=== PATIENT | male | born 1995 | race Caucasian/White ===

== ENCOUNTER 2020-06-23 06:44 | Emergency (ER) | payer OTHER ==
[2020-06-23] MEDS ORDERED: Sodium Chloride 0.9% 1000 ML 1,000 ML IV STA (07:06)
[2020-06-23] MEDS ORDERED: Sodium Chloride 0.9% 1000 ML 1,000 ML ONE (07:08)
[2020-06-23 07:14] LABS: Absolute Neutrophil Ct (ANC) 10.76 (1.4-6.9); BASOPHIL % 0.3 % (0.0-0.4); Basophil (Absolute #) 0.04 (0-0.4); Eosinophil % 0.1 % (0.00-5.0); Eosinophil (Absolute #) 0.01 (0-0.5); Hematocrit 47.9 % (42-50); Hemoglobin 15.7 gm/dl (12.5-18.0); Lymphocyte (Absolute #) 1.07 (1.0-4.6); Lymphocytes % 8.4 % (24.0-44.0); Mean Cell Volume 88.4 fl (78-100); Mean Corpuscular Hgb Concent. 32.8 g/dl (32-36); Mean Platelet Volume 11.4 fl (7.5-11.0); Monocyte (Absolute #) 0.83 (0.0-1.3); Monocytes % 6.5 % (0.0-12.0); Neutrophil % 84.7 % (36.0-66.0); Platelet Count 217 K/mm3 (150-450); Red Blood Count 5.42 M/mm3 (4.1-5.6); Red Cell Distribution Width 12.2 % (11.5-14.0); White Blood Count 12.7 K/mm3 (4.0-10.5)
[2020-06-23 07:23] LABS: VBG BASE EXCESS 1.7 (-2.0-2.0); VBG CARBOXYHEMOGLOBIN 1.9 % T HGB (0.0-6.9); VBG HCO3- 28.2 meq/L (22-28); VBG HEMOGLOBIN 16.1; VBG O2 SATURATION 47.8 (95-100); VBG POTASSIUM 4.5 (3.5-5.1); VBG pH 7.35 (7.32-7.42)
[2020-06-23 07:29] LABS: Appearance SLIGHTLY CLOUDY (CLEAR); Bilirubin NEGATIVE (NEGATIVE); Blood NEGATIVE Ery/ul (0-5); Epithelial Cells RARE /HPF (FEW); Glucose >=500 mg/dL (NEGATIVE); Ketones NEGATIVE (NEGATIVE); Leukocyte Esterase NEGATIVE (NEGATIVE); Mucus MANY /HPF (NEGATIVE); Nitrite NEGATIVE (NEGATIVE); Protein,Urine Dip 30 (Negative); Specific Gravity 1.036 (1.005-1.025); Urobilinogen NEGATIVE mg/dL (0-1)
[2020-06-23 07:31] LABS: ALBUMIN 4.5 g/dL (3.5-5.0); ALKALINE PHOSPHATASE 100 U/L (38-126); BLOOD UREA NITROGEN 21 mg/dL (9-20); CHLORIDE 103 mmol/L (98-107); Calcium 9.4 mg/dL (8.4-10.2); Carbon Dioxide 26 mmol/L (22-30); Creatinine 1 0.71 mg/dL (0.66-1.25); EST GLOMERULAR FILTRATION RATE > 60.0 ML/MIN; Glucose 158 mg/dL (74-106); Potassium 4.5 mmol/L (3.5-5.1); SGOT/AST 39 U/L (17-59); SGPT/ALT 36 U/L (0-50); SODIUM 137 mmol/L (137-145); Total Protein 7.6 g/dL (6.3-8.2)
--- NOTE | 2020-06-23 07:41 | ERPHSYRPT ---
- History of Present Illness Time Seen by Provider: 06/23/20 07:32 Source: patient Exam Limitations: no limitations Patient Subjective Stated Complaint: Hypoglycemia Triage Nursing Assessment: Patient brought back to ED via EMS and transferred self to bed. Patient A+O x3. Patient's skin pink, warm and dry. EMS reports patient's cousin calling 911 due to patient being incoherent. Patient is Type 1 DM. Upon arrival of EMS bs noted to be 80, but patient was still incoherent and unable to talk correctly. Patient was recently started on Farxiga 5mg and took one and only dose on Monday morning and has had two episodes of being incoherent. BS 156. Patient denies pain or discomfort. Physician History: 25 years old type I diabetic on insulin pump who was started on Farxiga 5 mg few days ago and has taken 2 doses so far which seems to be bottoming out his blood sugar. Patient reports in the last 3 days he has 2 episodes where he was found to be really weak and tired and prior to arrival he was screaming while s leeping, incoherent and found out to have a blood sugar of 40 at home. It improved to 80 on presentation in the ER. Patient denies any focal numbness tingling or weakness. No chest pain palpitations or shortness of breath. No abdominal pain nausea or vomiting. Timing/Duration: day(s) (3), intermittent, sudden, improved Severity: moderate Modifying Factors: Worsens With: nothing Associated Symptoms: denies symptoms Allergies/Adverse Reactions: No Known Drug Allergies Allergy (Verified 06/23/20 06:47) Home Medications: Dapagliflozin Propanediol [Farxiga] 1 tab PO DAILY 06/23/20 [History] Ergocalciferol (Vitamin D2) [Vitamin D] 25,000 unit PO WEEKLY 06/23/20 [History] Insulin Lispro [Humalog] 1 unit SQ DAILY 06/23/20 [History] Hx Tetanus, Diphtheria Vaccination/Date Given: Yes Hx Influenza Vaccination/Date Given: Yes Hx Pneumococcal Vaccination/Date Given: No Immunizations Up to Date: Yes Travel Risk - International Travel Have you traveled outside of the country in past 3 weeks: No - Coronavirus Screening Are you exhibiting any of the following symptoms?: No Close contact with a COVID-19 positive Pt in past 14-21 Days: No - Vaccine Status Have you recieved a Covid-19 vaccination: Yes 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 - Vaccination Dates Date of 2cond Vaccination (if applicable): N/A - Review of Systems Constitutional: Fatigue, Weakness Eyes: No Symptoms Ears, Nose, & Throat: No Symptoms Respiratory: No Symptoms Cardiac: No Symptoms Abdominal/Gastrointestinal: No Symptoms Genitourinary Symptoms: No Symptoms Musculoskeletal: No Symptoms Skin: No Symptoms Neurological: No Symptoms Psychological: No Symptoms Endocrine: No Symptoms Hematologic/Lymphatic: No Symptoms Immunological/Allergic: No Symptoms - Past Medical History Pertinent Past Medical History: Yes Endocrine Medical History: Diabetes Type I Other Medical History: INSULIN PUMP - Past Surgical History Past Surgical History: Yes Other Surgical History: TONSILS AND ADDENOIDS - Social History Smoking Status: Never smoker Exposure to second hand smoke: Yes Drug Use: none Patient Lives Alone: No - Nursing Vital Signs Nursing Vital Signs: Initial Vital Signs Temperature 97.0 F 06/23/20 06:52 Pulse Rate 106 H 06/23/20 06:52 Respiratory Rate 18 06/23/20 06:52 Blood Pressure 167/90 06/23/20 06:52 O2 Sat by Pulse Oximetry 99 06/23/20 06:52 Pain Scale Pain Intensity 0 - Physical Exam General Appearance: no apparent distress, alert Eye Exam: PERRL/EOMI, eyes nml inspection Ears, Nose, Throat Exam: normal ENT inspection, pharynx normal Neck Exam: normal inspection, supple, full range of motion Respiratory Exam: normal breath sounds, lungs clear Cardiovascular Exam: regular rate/rhythm, normal heart sounds Gastrointestinal/Abdomen Exam: soft, normal bowel sounds, tenderness Back Exam: normal inspection, normal range of motion Extremity Exam: normal inspection, normal range of motion, pelvis stable Neurologic Exam: alert, oriented x 3, cooperative, 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 as tested, normal mood/affect, nml cerebellar function Skin Exam: normal color SpO2 Interpretation: normal SpO2: 99 O2 Delivery: Room Air Ordered Tests: Active Orders 24 hr Category Date Time Status CBC W DIFF Stat Lab 06/23/20 06:59 Completed CMP Stat Lab 06/23/20 06:59 Completed Lactic Acid Stat Lab 06/23/20 07:05 Completed UA W/RFX UR CULTURE Stat Lab 06/23/20 07:00 Ordered VENOUS BLOOD GAS Stat Lab 06/23/20 07:05 Completed Medication Summary Generic Name Dose Route Start Last Admin Trade Name Hussein PRN Reason Stop Dose Admin Sodium Chloride 1,000 mls @ 999 mls/hr 06/23/20 07:06 06/23/20 07:09 Sodium Chloride 0.9% 1000 Ml IV 06/23/20 08:06 999 mls/hr .Q1H1M STA Administration Discontinued Medications Generic Name Dose Route Start Last Admin Trade Name Hussein PRN Reason Stop Dose Admin Sodium Chloride Confirm 06/23/20 07:08 Sodium Chloride 0.9% 1000 Ml Administered 06/23/20 07:09 Dose 1,000 mls @ ud .ROUTE .STK-MED ONE Lab/Rad Data: Laboratory Result Diagrams 06/23/20 06:59 06/23/20 06:59 Laboratory Results 06/23/20 06/23/20 06/23/20 Range/Units 07:05 06:59 06:59 WBC 12.7 H (4.0-10.5) K/mm3 RBC 5.42 (4.1-5.6) M/mm3 Hgb 15.7 (12.5-18.0) gm/dl Hct 47.9 (42-50) % MCV 88.4 (78-100) fl MCH 29.0 (26-32) pg MCHC 32.8 (32-36) g/dl RDW 12.2 (11.5-14.0) % Plt Count 217 (150-450) K/mm3 MPV 11.4 H (7.5-11.0) fl Gran % 84.7 H (36.0-66.0) % Eos # (Auto) 0.01 (0-0.5) Absolute Lymphs (auto) 1.07 (1.0-4.6) Absolute Monos (auto) 0.83 (0.0-1.3) Lymphocytes % 8.4 L (24.0-44.0) % Monocytes % 6.5 (0.0-12.0) % Eosinophils % 0.1 (0.00-5.0) % Basophils % 0.3 (0.0-0.4) % Absolute Granulocytes 10.76 H (1.4-6.9) Basophils # 0.04 (0-0.4) pO2/FiO2 Ratio 21.0 % VBG pH 7.35 (7.32-7.42) VBG pCO2 at Pat Temp 51 (42-55) mm/Hg VBG pO2 at Pat Temp 30 (25-40) mm/Hg VBG HCO3 28.2 H (22-28) meq/L VBG O2 Sat (Gilberto) 47.8 L (95-100) VBG Base Excess 1.7 (-2.0-2.0) VBG Hemoglobin 16.1 VBG Carboxyhemoglobin 1.9 (0.0-6.9) % T HGB POC Potassium 4.5 (3.5-5.1) Sodium 137 (137-145) mmol/L Potassium 4.5 (3.5-5.1) mmol/L Chloride 103 (98-107) mmol/L Carbon Dioxide 26 (22-30) mmol/L Anion Gap 13.0 (5-15) MEQ/L BUN 21 H (9-20) mg/dL Creatinine 0.71 (0.66-1.25) mg/dL Estimated GFR > 60.0 ML/MIN Glucose 158 H (74-106) mg/dL Lactic Acid 1.0 (0.4-2.0) Calcium 9.4 (8.4-10.2) mg/dL Total Bilirubin 0.30 (0.2-1.3) mg/dL AST 39 (17-59) U/L ALT 36 (0-50) U/L Alkaline Phosphatase 100 (38-126) U/L Serum Total Protein 7.6 (6.3-8.2) g/dL Albumin 4.5 (3.5-5.0) g/dL - Progress Progress: improved, re-examined Progress Note: 06/23/20 07:42 His blood sugar is improved to 158 on lab check. He is given fluid bolus. Nonfocal neuro exam throughout stay in the ER. Has white count of 12, not in DKA. Blood sugar drop could be secondary to Farxiga. I have advised him to stop it and discuss with his photographer helper and go per his recommendations. Discussed signs symptoms of worsening and how to manage hypoglycemic episode and also need to return to ER which he seems understanding. Counseled pt/family regarding: lab results, diagnosis, need for follow-up - Departure Departure Disposition: Home Clinical Impression: Hypoglycemic episode in patient with diabetes mellitus, Generalized weakness Condition: Stable Critical Care Time: No Referrals: JACOB BROWN [NON-STAFF PHY W/O PRIVILEGES] - (Call today) Instructions: Low Blood Sugar, Adult (DC) Additional Instructions: Monitor your blood sugar regularly, stop taking Farxiga and discussed with your primary photographer helper and go per his recommendations. Follow instructions for low blood sugar management. Keep yourself well-hydrated. Return to ER for any worsening.
[2020-06-23 08:01] LABS: Bacteria FEW /HPF (NEGATIVE)
[2020-06-23 09:06] VITALS: BP 154/94; PULSE 101; O2SAT 98
== END 2020-06-23 09:07 | disposition home or self-care (01) ==
LOC: ED 06:44
DX: E10.649 Type 1 diabetes mellitus with hypoglycemia without coma (principal); Z79.4 Long term (current) use of insulin; R53.1 Weakness
CPT/HCPCS: 36415; 80053; 81001; 82805; 83605; 85025; 96360; 99284

== ENCOUNTER 2022-04-11 08:26 | Emergency (ER) | payer OTHER ==
[2022-04-11] MEDS ORDERED: ZOFRAN ODT 4 MG PO ONE (09:14)
[2022-04-11] MEDS ORDERED: ZOFRAN ODT 4 MG ONE (09:15)
[2022-04-11] MEDS ORDERED: Sodium Chloride 0.9% 1000 ML 1,000 ML IV STA (09:43)
[2022-04-11] MEDS ORDERED: TORAdol 30 mg Injection IV ONE (09:44)
[2022-04-11] MEDS ORDERED: Cleocin Phosphate IV 600 MG/4 ML IV ONE (09:44)
[2022-04-11] MEDS ORDERED: Sodium Chloride 0.9% 1000 ML 1,000 ML ONE (10:06)
[2022-04-11] MEDS ORDERED: TORAdol 30 mg Injection ONE (10:06)
[2022-04-11] MEDS ORDERED: CLINDAMYCIN-D5W 600 MG/50 ML*** 600 MG/50 ML BAG IV ONE (10:06)
[2022-04-11 10:19] LABS: Absolute Neutrophil Ct (ANC) 12.79 x10^3/uL (1.4-6.9); BASOPHIL % 0.3 % (0.0-0.4); Basophil (Absolute #) 0.04 x10^3/uL (0-0.4); Eosinophil % 0.1 % (0.00-5.0); Eosinophil (Absolute #) 0.01 x10^3/uL (0-0.5); Hematocrit 43.8 % (42-50); Hemoglobin 14.4 g/dL (12.5-18.0); IMMATURE GRAN # 0.07 x10^3u/L (0.00-0.03); IMMATURE GRAN % 0.5 % (0.00-0.4); Lymphocyte (Absolute #) 1.29 x10^3/uL (1.0-4.6); Lymphocytes % 8.5 % (24.0-44.0); Mean Cell Volume 88.7 fL (78-100); Mean Corpuscular Hemoglobin 29.1 pg (26-32); Mean Corpuscular Hgb Concent. 32.9 g/dL (32-36); Monocyte (Absolute #) 1.04 x10^3/uL (0.0-1.3); Monocytes % 6.8 % (0.0-12.0); Neutrophil % 83.8 % (36.0-66.0); Platelet Count 169 x10^3/uL (150-450); Red Blood Count 4.94 x10^6/uL (4.1-5.6); White Blood Count 15.2 x10^3/uL (4.0-10.5)
[2022-04-11 10:20] LABS: ALBUMIN 3.9 g/dL (3.5-5.0); ALKALINE PHOSPHATASE 111 U/L (38-126); ANION GAP 13.1 MEQ/L (5-15); BLOOD UREA NITROGEN 12 mg/dL (9-20); CHLORIDE 105 mmol/L (98-107); Calcium 8.5 mg/dL (8.4-10.2); Carbon Dioxide 23 mmol/L (22-30); EST GLOMERULAR FILTRATION RATE > 60.0 ML/MIN; Glucose 160 mg/dL (74-106); SGOT/AST 25 U/L (17-59); SGPT/ALT 24 U/L (0-50); SODIUM 137 mmol/L (137-145); Total Protein 7.2 g/dL (6.3-8.2)
--- NOTE | 2022-04-11 10:28 | XRAY ---
Indication: Right jaw pain/swelling. No known injury. Multiple contiguous axial images obtained through the facial bones. Sagittal and coronal reformatted images obtained. Comparison: None No acute fracture, suspicious bony lesions, or radiopaque foreign body. Orbits including roof, bravo, and floors intact. Paranasal sinuses and nasal passages are clear. Mild nasal septal deviation to the right. Incidental bilateral middle turbinate bria bullosa. Right jaw demonstrate mild incompletely visualized cutaneous/subcutaneous soft tissue induration presumed inflammatory/infectious. Visualized right parotid gland is asymmetrically prominent with small intraparotid lymph nodes favoring parotiditis in the right clinical setting. Lack of IV contrast precludes further characterization. Small centimeter/subcentimeter right cervical lymph nodes presumed reactive. No pathologic lymphadenopathy. Visualized base of brain unremarkable. Impression: 1. Incompletely visualized prominent right parotid gland. Rule out parotiditis. Adjacent right cutaneous/subcutaneous soft tissue induration with prominent right cervical lymph nodes presumed reactive. 2. Remaining CT facial bones without contrast exam is negative.
[2022-04-11] MEDS ORDERED: CLINDAMYCIN-D5W 600 MG/50 ML*** 600 MG/50 ML BAG IV STA (10:38)
--- NOTE | 2022-04-11 11:24 | ERPHSYRPT ---
- History of Present Illness Source: patient Exam Limitations: no limitations Patient Subjective Stated Complaint: Pt states "My right jaw has been swollen for three days. I cannot eat, I can barely open my mouth." Triage Nursing Assessment: Pt presented alert and oriented X 3, skin pwd. Pt ambulates with an upright steady gait, able to speak in clear full sentences. Pt right jaw swollen and tender. Physician History: 27 yo wm w R mandibular edema x 2 days. Pain is 8/10. He denies fever and dental pain. Pt has been nauseated wo vomiting. Trauma is denied. Pt states that this is a recurrent problem. Timing/Duration: gradual onset Severity: moderate ENT Location: facial (R mandibular edema) Prearrival Treatment: no prearrival treatment Associated Symptoms: denies symptoms Allergies/Adverse Reactions: No Known Drug Allergies Allergy (Verified 06/23/20 06:47) Home Medications: Dapagliflozin Propanediol [Farxiga] 1 tab PO DAILY 06/23/20 [History] Ergocalciferol (Vitamin D2) [Vitamin D] 25,000 unit PO WEEKLY 06/23/20 [History] Insulin Lispro [Humalog] 1 unit SQ DAILY 06/23/20 [History] Hx Tetanus, Diphtheria Vaccination/Date Given: Yes Hx Influenza Vaccination/Date Given: Yes Hx Pneumococcal Vaccination/Date Given: No Immunizations Up to Date: Yes Travel Risk - International Travel Have you traveled outside of the country in past 3 weeks: No - Coronavirus Screening Are you exhibiting any of the following symptoms?: No Close contact with a COVID-19 positive Pt in past 14-21 Days: No - Vaccine Status Have you recieved a Covid-19 vaccination: Yes 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 - Vaccination Dates Date of 2cond Vaccination (if applicable): N/A - Review of Systems Constitutional: No Symptoms Eyes: No Symptoms Ears, Nose, & Throat: No Symptoms Respiratory: No Symptoms Cardiac: No Symptoms Abdominal/Gastrointestinal: No Symptoms Genitourinary Symptoms: No Symptoms Musculoskeletal: No Symptoms Skin: No Symptoms Neurological: No Symptoms Psychological: No Symptoms Endocrine: No Symptoms Hematologic/Lymphatic: No Symptoms Immunological/Allergic: No Symptoms - Past Medical History Pertinent Past Medical History: Yes Neurological History: Peripheral Neuropathy Cardiac History: Other Respiratory History: No Pertinent History Endocrine Medical History: Diabetes Type II Musculoskeletal History: Fractures Other Medical History: NOTES NUMBESS UNDER THE TOES ON THE R SIDE. PT HAS AN INSULINE PUMP. TACHYCARDIA. - Past Surgical History Past Surgical History: Yes Other Surgical History: TONSILS AND ADDENOIDS - Social History Smoking Status: Never smoker Exposure to second hand smoke: Yes Drug Use: none Patient Lives Alone: No - Nursing Vital Signs Nursing Vital Signs: Initial Vital Signs Temperature 98.3 F 04/11/22 08:50 Pulse Rate 105 H 04/11/22 08:50 Respiratory Rate 20 04/11/22 08:50 Blood Pressure 188/102 04/11/22 08:50 O2 Sat by Pulse Oximetry 96 04/11/22 08:50 Pain Scale Pain Intensity 5 Tachy/Hypertensive - Physical Exam General Appearance: no apparent distress Eye Exam: bilateral eye: normal inspection, PERRL, EOMI Ear Exam: bilateral ear: auricle normal, canal normal, TM normal Nasal Exam: normal inspection Throat Exam: pharynx normal, mandibular swelling (Marked R mandibular edema w TTP/Good airway), No dental tenderness, No excessive drooling, No foreign body Neck Exam: normal inspection, non-tender, supple, full range of motion, trachea midline Cardiovascular/Respiratory Exam: normal breath sounds, heart sounds normal, tachycardia Abdominal Exam: non-tender, soft Neurologic Exam: alert, oriented x 3, cooperative, 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 as tested, normal mood/affect, nml cerebellar function, nml station & gait, sensation nml Skin Exam: normal color, warm, dry SpO2 Interpretation: normal SpO2: 94 O2 Delivery: Room Air - Course Nursing assessment & vital signs reviewed: Yes - CT Exams Maxillofacial Bones CT Interpretation: Discussed w/radiologist (Parotid edema w reactive nodes) Ordered Tests: Active Orders 24 hr Category Date Time Status IV Insertion STAT Care 04/11/22 09:43 Completed FACIAL BONES WO CONTRAST [CT] Stat Exams 04/11/22 10:12 Completed CBC W DIFF Stat Lab 04/11/22 10:12 Completed CMP Stat Lab 04/11/22 10:12 Completed Lactic Acid Stat Lab 04/11/22 09:27 Completed UA W/RFX UR CULTURE Stat Lab 04/11/22 09:42 Ordered Medication Summary Discontinued Medications Generic Name Dose Route Start Last Admin Trade Name Freq PRN Reason Stop Dose Admin Clindamycin Phosphate 600 mg 04/11/22 09:44 04/11/22 10:43 Clindamycin Phosphate 600 Mg/4 Ml Vial IV 04/11/22 09:45 Not Given ONCE ONE Dexamethasone Sodium Phosphate 10 mg 04/11/22 11:29 04/11/22 11:32 Dexamethasone Sod Phosphate 10 Mg/Ml IV 04/11/22 11:30 10 mg STAT ONE Administration Dexamethasone Sodium Phosphate Confirm 04/11/22 11:31 Dexamethasone Sod Phosphate 10 Mg/Ml Administered 04/11/22 11:32 Dose 10 mg .ROUTE .STK-MED ONE Sodium Chloride 1,000 mls @ 999 mls/hr 04/11/22 09:43 04/11/22 11:30 Sodium Chloride 0.9% 1000 Ml IV 04/11/22 10:43 Infused .Q1H1M STA Infusion Sodium Chloride Confirm 04/11/22 10:06 Sodium Chloride 0.9% 1000 Ml Administered 04/11/22 10:07 Dose 1,000 mls @ ud .ROUTE .STK-MED ONE Clindamycin HCl/Dextrose Confirm 04/11/22 10:06 Clindamycin-D5w 600 Mg/50 Ml Administered 04/11/22 10:07 Dose 600 mg in 50 mls @ ud IV .STK-MED ONE Clindamycin HCl/Dextrose 600 mg in 50 mls @ 100 mls/hr 04/11/22 10:38 04/11/22 11:21 Clindamycin-D5w 600 Mg/50 Ml IV 04/11/22 11:07 Infused STAT STA Infusion Ketorolac Tromethamine 30 mg 04/11/22 09:44 04/11/22 10:27 Ketorolac Tromethamine 30 Mg/Ml Inj IV 04/11/22 09:45 30 mg STAT ONE Administration Ketorolac Tromethamine Confirm 04/11/22 10:06 Ketorolac Tromethamine 30 Mg/Ml Inj Administered 04/11/22 10:07 Dose 30 mg .ROUTE .STK-MED ONE Ondansetron HCl 4 mg 04/11/22 09:14 04/11/22 09:16 Zofran 4 Mg/Udtablet Orally Disintegrating PO 04/11/22 09:15 4 mg STAT ONE Administration Ondansetron HCl Confirm 04/11/22 09:15 Zofran 4 Mg/Udtablet Orally Disintegrating Administered 04/11/22 09:16 Dose 4 mg .ROUTE .STK-MED ONE Lab/Rad Data: Laboratory Result Diagrams 04/11/22 10:12 04/11/22 10:12 Laboratory Results 04/11/22 04/11/22 04/11/22 Range/Units 10:12 10:12 09:27 WBC 15.2 H (4.0-10.5) x10^3/uL RBC 4.94 (4.1-5.6) x10^6/uL Hgb 14.4 (12.5-18.0) g/dL Hct 43.8 (42-50) % MCV 88.7 (78-100) fL MCH 29.1 (26-32) pg MCHC 32.9 (32-36) g/dL RDW 12.0 (11.5-14.0) % Plt Count 169 (150-450) x10^3/uL MPV 12.0 H (7.5-11.0) fL Gran % 83.8 H (36.0-66.0) % Immature Gran % (Auto) 0.5 H (0.00-0.4) % Nucleat RBC Rel Count 0.0 (0.00-0.1) % Eos # (Auto) 0.01 (0-0.5) x10^3/uL Immature Gran # (Auto) 0.07 H (0.00-0.03) x10^3u/L Absolute Lymphs (auto) 1.29 (1.0-4.6) x10^3/uL Absolute Monos (auto) 1.04 (0.0-1.3) x10^3/uL Absolute Nucleated RBC 0.00 (0.00-0.01) x10^3u/L Lymphocytes % 8.5 L (24.0-44.0) % Monocytes % 6.8 (0.0-12.0) % Eosinophils % 0.1 (0.00-5.0) % Basophils % 0.3 (0.0-0.4) % Absolute Granulocytes 12.79 H (1.4-6.9) x10^3/uL Basophils # 0.04 (0-0.4) x10^3/uL Sodium 137 (137-145) mmol/L Potassium 4.0 (3.5-5.1) mmol/L Chloride 105 (98-107) mmol/L Carbon Dioxide 23 (22-30) mmol/L Anion Gap 13.1 (5-15) MEQ/L BUN 12 (9-20) mg/dL Creatinine 0.50 L (0.66-1.25) mg/dL Estimated GFR > 60.0 ML/MIN Glucose 160 H (74-106) mg/dL Lactic Acid 1.3 (0.4-2.0) Calcium 8.5 (8.4-10.2) mg/dL Total Bilirubin 1.10 (0.2-1.3) mg/dL AST 25 (17-59) U/L ALT 24 (0-50) U/L Alkaline Phosphatase 111 (38-126) U/L Serum Total Protein 7.2 (6.3-8.2) g/dL Albumin 3.9 (3.5-5.0) g/dL - Progress Progress: improved Progress Note: 04/11/22 11:26 1L NS bolus/600mg IV Clindamycin/30mg IV Toradol/4mg IV Zofran w improvement Nursing note and vital signs reviewed No food or housing insecurities noted Pt has access to meds/medical care 10mg IV Decadron/Pt warned that glucose could rise due to Decadron 04/11/22 11:26 04/11/22 14:08 Counseled pt/family regarding: lab results, diagnosis, need for follow-up, rad results Medical Desision Making - Risk of complications The pt has a mod risk of morbidity or mortality based on: Need for prescription drug management - Departure Departure Disposition: Home Clinical Impression: Parotiditis Condition: Stable Critical Care Time: No Referrals: JOSEPH HANSON [Primary Care Provider] - Follow up/PCP as directed Instructions: Parotitis Additional Instructions: Follow up with your family MD or ENT in 1-2 days Continue with Clindamycin three times a day for 1 week Pain meds as needed(Use a stool softener with pain meds) Return to ER for increased swelling, trouble swallowing, or temperature greater than 100.5 Decadron injection will make your glucose elevate Prescriptions: Hydrocodone/Acetaminophen [Hydrocodone-Acetamin 5-325 mg] 1 each PO Q4HPRN PRN #5 tablet MDD 4 tabs PRN Reason: Pain clindamycin HCL [Cleocin HCl] 300 mg PO TID #21 cap Hydrocodone/Acetaminophen [Hydrocodone-Acetamin 7.5-325] 1 each PO Q4-6HPRN PRN #5 tablet MDD 4 tabs PRN Reason: Pain
[2022-04-11] MEDS ORDERED: DECADRON 10MG INJ. IV ONE (11:29)
[2022-04-11] MEDS ORDERED: DECADRON 10MG INJ. ONE (11:31)
[2022-04-11 11:56] VITALS: BP 121/78; PULSE 86
[2022-04-11 14:10] VITALS: O2SAT 94
== END 2022-04-11 11:53 | disposition home or self-care (01) ==
LOC: ED 08:26
DX: K11.20 Sialoadenitis, unspecified (principal); R11.0 Nausea; Z79.891 Long term (current) use of opiate analgesic; Z79.84 Long term (current) use of oral hypoglycemic drugs; Z79.4 Long term (current) use of insulin; E11.42 Type 2 diabetes mellitus with diabetic polyneuropathy; Z96.41 Presence of insulin pump (external) (internal)
CPT/HCPCS: 36000; 36415; 70486; 80053; 83605; 85025; 96365; 96374; 99284; J1100; J1885; Q0162